=== PATIENT | female | born 1960 | race African-American/Black ===

== ENCOUNTER 2019-10-20 08:47 | Emergency (ER) | payer MEDICAID ==
[~2019-10-20] VITALS: Ht 167.6 cm; Wt 72.6 kg
[~2019-10-20 08:47] MED LIST: ASPIRIN81 MG ORAL; ATORVASTATIN CA20 MG ORAL; BENAZEPRIL HCL20 MG ORAL; FUROSEMIDE20 M1 ORAL; LISINOPRIL20 MG ORAL; LOSARTAN POTASS25 MG ORAL; LOVASTATIN40 MG ORAL; METHOCARBAMOL500 MG ORAL; NORCO 5-325 TA1 EAC1 ORAL; OYSTER SHELL 51 EAC1 PO; TESSALON PERLE100 MG ORAL
[2019-10-20] MEDS ORDERED: ATORVASTATIN CA40 MG ORAL (09:07)
[2019-10-20] MEDS ORDERED: LOSARTAN POTASS25 MG ORAL (09:07)
[2019-10-20] MEDS ORDERED: GLIPIZIDE5 MG ORAL (09:07)
[2019-10-20] MEDS ORDERED: HYDROCHLOROTH12.5 MG ORAL (09:07)
[2019-10-20] MEDS ORDERED: OYSCO-500500 M1 PO (09:07)
[2019-10-20 09:08] VITALS: BP 155/58
[2019-10-20] MEDS ORDERED: Ketorolac 30mg Inj IV ONE (09:15)
[2019-10-20] MEDS ORDERED: Morphine Sulfate 4mg/ml Inj (IV USE ONLY) IVP ONE (09:15)
[2019-10-20 09:26] LABS: BASOPHILS % (AUTO) 0.6 % (0.0-2.0); EOSINOPHILS % (AUTO) 0.1 % (0.0-3.0); HEMOGLOBIN 13.3 G/DL (12.0-16.0); MEAN CORPUSCULAR VOLUME 87 FL (80-99); MONOCYTES % (AUTO) 3.7 % (1.0-10.0); NEUTROPHILS % (AUTO) 84.7 % (45.0-75.0); PLATELET COUNT 240 K/UL (150-450); RED BLOOD COUNT 4.38 M/UL (4.20-5.40); RED CELL DISTRIBUTION WIDTH 10.7 % (11.6-14.8); WHITE BLOOD COUNT 12.6 K/UL (4.8-10.8)
[2019-10-20 10:01] LABS: ANION GAP 11 mmol/L (5-15); BLOOD UREA NITROGEN 21 mg/dL (7-18); CALCIUM 9.2 MG/DL (8.5-10.1); CARBON DIOXIDE 27 MMOL/L (21-32); CHLORIDE 102 MMOL/L (98-107); POTASSIUM 3.8 MMOL/L (3.5-5.1); SODIUM 140 MMOL/L (136-145)
[2019-10-20 10:06] LABS: ALANINE AMINOTRANSFERASE 35 U/L (12-78); ALBUMIN 4.2 G/DL (3.4-5.0); ALBUMIN/GLOBULIN RATIO 1.4 (1.0-2.7); ALKALINE PHOSPHATASE 86 U/L (46-116); ASPARTATE AMINO TRANSFERASE 20 U/L (15-37); BILIRUBIN,TOTAL 0.6 MG/DL (0.2-1.0)
--- NOTE | 2019-10-20 10:11 | Emergency Room Report ---
History of Present Illness General Chief Complaint: Abdominal Pain Source: Patient Present Illness HPI 59-year-old female presents with abdominal pain. Started around 3 AM today and woke her up. Pain is right-sided, sharp, 8 out of 10, nonradiating. Notes nausea, denies vomiting. Denies fevers or chills. Denies chest pain or shortness of breath. Denies any diarrhea. Denies sick contacts or recent travel. No other aggravating relieving factors. Denies any other associated symptoms Allergies: Coded Allergies: No Known Allergies (Unverified , 12/25/15) COVID-19 Screening Contact w/high risk pt: No Recent Travel to affected area: No Experienced COVID-19 symptoms?: No COVID-19 Testing performed STOCK PREPARATION OPERATOR: No Patient History Past Medical History: HTN Past Surgical History: none Pertinent Family History: none Social History: Denies: smoking, alcohol use, drug use Now: No Immunizations: UTD Reviewed Nursing Documentation: PMH: Agreed; PSxH: Agreed Nursing Documentation-PMH Hx Hypertension: Yes Hx Diabetes: Yes Review of Systems All Other Systems: negative except mentioned in HPI Physical Exam Vital Signs Date Time Temp Pulse Resp B/P (MAP) Pulse Ox O2 Delivery O2 Flow Rate FiO2 10/20/19 09:01 97.2 68 14 155/58 (90) 100 Room Air Sp02 EP Interpretation: reviewed, normal General Appearance: no apparent distress, alert, GCS 15, non-toxic Head: normocephalic, atraumatic Eyes: bilateral eye normal inspection, bilateral eye PERRL ENT: hearing grossly normal, normal pharynx, no angioedema, normal voice Neck: full range of motion, supple/symm/no masses Respiratory: chest non-tender, lungs clear, normal breath sounds, speaking full sentences Cardiovascular #1: regular rate, rhythm, no edema Cardiovascular #2: 2+ carotid (R), 2+ carotid (L), 2+ radial (R), 2+ radial (L) , 2+ dorsalis pedis (R), 2+ dorsalis pedis (L) Gastrointestinal: normal bowel sounds, soft, non-distended, no guarding, no rebound, tenderness - RUQ Rectal: deferred Genitourinary: normal inspection, no CVA tenderness Musculoskeletal: back normal, normal range of motion, gait/station normal, non- tender Neurologic: alert, motor strength/tone normal, oriented x3, sensory intact, responsive, speech normal Psychiatric: judgement/insight normal, memory normal, mood/affect normal, no suicidal/homicidal ideation Reflexes: 3+ bicep (R), 3+ bicep (L), 3+ tricep (R), 3+ tricep (L), 3+ knee (R) , 3+ knee (L) Skin: no rash Lymphatic: no adenopathy Medical Decision Making Diagnostic Impression: Primary Impression: Cholelithiasis Qualified Codes: K80.20 - Calculus of gallbladder without cholecystitis without obstruction ER Course Hospital Course 59-year-old F presents to ED with RUQ abdominal pain Differential diagnosis includes - pyelonephritis, kidney stone, gastritis, cholecystitis Clinical course Patient placed on stretcher. After initial history and physical I ordered labs , IV fluids, pain medications and US Labs - minimal leukocytosis, electrolytes ok, LFTs normal, US shows gallstones, no GB thickening, negative murphys sign, CBD normal Upon reassessment, patient states pain has improved. Discussed findings with patient. Vitals stable. LFTs normal. No signs of biliary obstruction. Safe for discharge for close outpatient follow-up. I will provide surgery referral. I feel this is a highly complex case requiring extensive working including EKG/ Rhythm strip, Xray/CT/US, Blood/urine lab work, repeat exams while in ED, and administration of strong opiates/narcotics for pain control, admission to hospital or close patient follow up. Diagnosis - cholelithiasis Stable and discharged to home with prescription for Motrin, T#3, zofran, pepcid. Followup with PMD. Return to ED if symptoms recur or worsen Labs Test 10/20/19 09:10 10/20/19 10:20 White Blood Count 12.6 K/UL (4.8-10.8) Red Blood Count 4.38 M/UL (4.20-5.40) Hemoglobin 13.3 G/DL (12.0-16.0) Hematocrit 38.0 % (37.0-47.0) Mean Corpuscular Volume 87 FL (80-99) Mean Corpuscular Hemoglobin 30.3 PG (27.0-31.0) Mean Corpuscular Hemoglobin Concent 35.0 G/DL (32.0-36.0) Red Cell Distribution Width 10.7 % (11.6-14.8) Platelet Count 240 K/UL (150-450) Mean Platelet Volume 6.7 FL (6.5-10.1) Neutrophils (%) (Auto) 84.7 % (45.0-75.0) Lymphocytes (%) (Auto) 11.0 % (20.0-45.0) Monocytes (%) (Auto) 3.7 % (1.0-10.0) Eosinophils (%) (Auto) 0.1 % (0.0-3.0) Basophils (%) (Auto) 0.6 % (0.0-2.0) Sodium Level 140 MMOL/L (136-145) Potassium Level 3.8 MMOL/L (3.5-5.1) Chloride Level 102 MMOL/L (98-107) Carbon Dioxide Level 27 MMOL/L (21-32) Anion Gap 11 mmol/L (5-15) Blood Urea Nitrogen 21 mg/dL (7-18) Creatinine 1.0 MG/DL (0.55-1.30) Estimat Glomerular Filtration Rate > 60 mL/min (>60) Glucose Level 240 MG/DL (74-106) Calcium Level 9.2 MG/DL (8.5-10.1) Total Bilirubin 0.6 MG/DL (0.2-1.0) Aspartate Amino Transf (AST/SGOT) 20 U/L (15-37) Alanine Aminotransferase (ALT/SGPT) 35 U/L (12-78) Alkaline Phosphatase 86 U/L (46-116) Total Protein 7.3 G/DL (6.4-8.2) Albumin 4.2 G/DL (3.4-5.0) Globulin 3.1 g/dL Albumin/Globulin Ratio 1.4 (1.0-2.7) Lipase 98 U/L (73-393) Urine Color Pale yellow Urine Appearance Clear Urine pH 5 (4.5-8.0) Urine Specific [place] 1.020 (1.005-1.035) Urine Protein 1+ (NEGATIVE) Urine Glucose (UA) 3+ (NEGATIVE) Urine Ketones 3+ (NEGATIVE) Urine Blood 2+ (NEGATIVE) Urine Nitrite Negative (NEGATIVE) Urine Bilirubin Negative (NEGATIVE) Urine Urobilinogen Normal MG/DL (0.0-1.0) Urine Leukocyte Esterase Negative (NEGATIVE) Urine RBC 2-4 /HPF (0 - 2) Urine WBC 0-2 /HPF (0 - 2) Urine Squamous Epithelial Cells Few /LPF (NONE/OCC) Urine Bacteria Occasional /HPF (NONE) CT/MRI/US Diagnostic Results CT/MRI/US Diagnostic Results : Imaging Test Ordered: ABD US Impression gallstones noted. no GB wall thickening. no sludge Last Vital Signs Date Time Temp Pulse Resp B/P (MAP) Pulse Ox O2 Delivery O2 Flow Rate FiO2 10/20/19 09:08 97.2 14 155/58 100 Room Air 10/20/19 09:08 68 Status: improved Disposition: HOME, SELF-CARE Condition: Stable Scripts Famotidine* (Pepcid 20mg tablet*) 20 Mg Tablet 20 MG ORAL DAILY, #30 TAB 0 Refills Prov: Diaz Hein MD 10/20/19 Ondansetron Odt* (ZOFRAN ODT*) 4 Mg Tab.rapdis 4 MG BC EVERY 6 HOURS PRN for Nausea & Vomiting, #20 TAB 0 Refills Prov: Diaz Hein MD 10/20/19 Acetaminophen With Codeine (T#3) (TYLENOL #3 TAB*) Y Tab 1 TAB ORAL Q8H PRN for For Pain, #12 TAB Prov: Diaz Hein MD 10/20/19 Ibuprofen* (MOTRIN*) 600 Mg Tablet 600 MG ORAL Q8H PRN for FOR PAIN, #30 TAB 0 Refills Prov: Diaz Hein MD 10/20/19 Referrals: [facility],REFERRING (PCP) Diaz Hein MD October 20, 2019 10:11
[2019-10-20] MEDS ORDERED: ONDANSETRON ODT4 MG BC (10:42)
[2019-10-20] MEDS ORDERED: IBUPROFEN600 M1 ORAL (10:42)
[2019-10-20] MEDS ORDERED: ACETAMINOPHEN-1 EAC1 ORAL (10:42)
[2019-10-20] MEDS ORDERED: FAMOTIDINE20 MG ORAL (10:42)
[2019-10-20 10:43] LABS: APPEARANCE,URINE CLEAR; BILIRUBIN, URINE NEGATIVE (NEGATIVE); COLOR,URINE PALE YELLOW; GLUCOSE, URINE (UA) 3+ (NEGATIVE); KETONES,URINE 3+ (NEGATIVE); LEUKOCYTE ESTERASE ,URINE NEGATIVE (NEGATIVE); NITRITE,URINE NEGATIVE (NEGATIVE); PH,URINE 5 (4.5-8.0); PROTEIN,URINE 1+ (NEGATIVE); UROBILINOGEN,URINE NORMAL MG/DL (0.0-1.0)
[2019-10-20 10:51] VITALS: BP 103/64
--- NOTE | 2019-10-20 11:41 | Diagnostic Imaging Report ---
Indication: Abdominal pain, right upper quadrant pain, nausea, vomiting Technique: Heller-scale and duplex images of the upper abdomen were obtained Comparison: none Findings: Gallbladder demonstrates multiple large gallstones. No gallbladder wall thickening or pericholecystic fluid. Sonographic Howard's sign is negative. Common bile duct measures 4 mm in diameter. No intrahepatic biliary ductal dilatation. Liver demonstrates normal echogenicity, no focal abnormality. Portal vein and hepatic veins are patent. Pancreas is unremarkable. Spleen is unremarkable. Left kidney measures 10 cm in length. Right kidney measures 10.4 cm length. Both kidneys demonstrate normal echogenicity. There is no hydronephrosis. No focal abnormality . Non-aneurysmal abdominal aorta . Impression: Cholelithiasis. Negative for dilated bile ducts No other acute or significant findings
== END 2019-10-20 10:51 | disposition home or self-care (01) ==
LOC: EMR 09:09
DX: K80.20 Calculus of gallbladder without cholecystitis without obstruction (principal); I10 Essential (primary) hypertension; E11.9 Type 2 diabetes mellitus without complications; D72.829 Elevated white blood cell count, unspecified
CPT/HCPCS: 36415; 76700; 80053; 81003; 83690; 85025; 96361; 96374; 96375; J1885; J2270; J2405; J7030; S0028; Z7502; 99284

== ENCOUNTER 2020-08-07 11:10 | Emergency (ER) | payer MEDICAID ==
[~2020-08-07] VITALS: Ht 162.6 cm; Wt 72.6 kg
[~2020-08-07 11:10] MED LIST changes: +ACETAMINOPHEN-1 EAC1 ORAL; +ATORVASTATIN CA40 MG ORAL; +FAMOTIDINE20 MG ORAL; +GLIPIZIDE5 MG ORAL; +HYDROCHLOROTH12.5 MG ORAL; +IBUPROFEN600 M1 ORAL; +ONDANSETRON ODT4 MG BC; +OYSCO-500500 M1 PO
[2020-08-07 11:29] VITALS: BP 135/64
--- NOTE | 2020-08-07 11:37 | Emergency Room Report ---
History of Present Illness General Chief Complaint: Lower Back Pain or Injury Source: Patient Present Illness HPI Several days ago the patient was on a counter moving lights. She drank down and experienced pain in her lower back immediately. Since that time she has had pain in her lower back mainly on the right-hand side that radiates down into her buttock area but not down her leg. She has been taking ibuprofen and says this has not helped. She has to lay on her left side overall she has pain on the right. She saw a chiropractor once. He said he felt that she might have a spinal fracture and recommended coming to the emergency department for x-rays studies. Patient is not on a blood thinner denies oncologic problems, denies dysuria, denies saddle numbness or incontinence, denies numbness or weakness on the right-hand side. She is never had back problems in the past. She denies fevers or chills. She rates the pain 10/10 at this time aching and radiating into her buttock area. She also states that there are times when she feels muscle spasms that make the pain worse. The patient denies exposure to Covid positive contacts. Patient denies osteoporosis. The patient has a history of diabetes that she says is "prediabetes". She takes oral medications for this. She did not tolerate Metformin. He denies polyuria and polydipsia. She has gained some weight and says her diet is not good at this time. Patient also has a history of hypertension and hypercholesterolemia. No sore throat, chest pain, palpitations, nausea, vomiting, diarrhea, abdominal pain, shortness of breath, dizziness, headache. Allergies: Coded Allergies: No Known Allergies (Unverified , 12/25/15) COVID-19 Screening Contact w/high risk pt: No Recent Travel to affected area: No Experienced COVID-19 symptoms?: No COVID-19 Testing performed PLUMBER GASFITTER: No Patient History Past Medical History: see triage record Social History: Denies: smoking Social History Narrative Caring for her 3-year-old granddaughter Now: No Reviewed Nursing Documentation: PMH: Agreed; PSxH: Agreed Nursing Documentation-PMH Past Medical History: No History, Except For Hx Cardiac Problems: No Hx Hypertension: Yes Hx Pacemaker: No Hx Asthma: No Hx COPD: No Hx Diabetes: Yes Hx Cancer: No Hx Gastrointestinal Problems: No Hx Dialysis: No History Of Psychiatric Problem: No Hx Neurological Problems: No Hx Cerebrovascular Accident: No Hx Seizures: No Review of Systems All Other Systems: negative except mentioned in HPI Physical Exam Vital Signs Date Time Temp Pulse Resp B/P (MAP) Pulse Ox O2 Delivery O2 Flow Rate FiO2 08/07/20 11:25 99.0 79 18 135/64 (87) 99 Room Air Sp02 EP Interpretation: reviewed, normal General Appearance: well appearing, no apparent distress, GCS 15 Head: normocephalic Eyes: bilateral eye normal inspection, bilateral eye PERRL ENT: other - Wearing a mask Neck: full range of motion, supple Respiratory: lungs clear, normal breath sounds Cardiovascular #1: regular rate, rhythm Cardiovascular #2: 2+ radial (R), 2+ dorsalis pedis (R) Gastrointestinal: normal inspection, non tender Musculoskeletal: gait/station normal, no calf tenderness, tenderness - Right paraspinous muscles, other - No point tenderness of the spine. Straight leg raise is negative for sciatic pain or increased pain in the lower back. She is able to sit and stand without difficulty but sometimes gets caught with pain which she says is like a muscle spasm. Neurologic: alert, motor strength/tone normal, DTRs symmetric, oriented x3, sensory intact, cerebellar normal, speech normal Psychiatric: mood/affect normal - Concerned Reflexes: 2+ knee (R), 2+ knee (L); 1+ ankle (R), 1+ ankle (L) Skin: normal color, no rash Medical Decision Making Diagnostic Impression: Primary Impression: Lumbar spine strain Qualified Codes: S39.012A - Strain of muscle, fascia and tendon of lower back, initial encounter Additional Impressions: Muscle spasm Hyperglycemia ER Course Patient presents with lumbar pain mainly on the right-hand side with muscle spasms and pain radiating down to the gluteal area. She was advised to get x- rays performed however based on her exam there is no evidence of a spinal fr acture at this time. Differential includes back strain, herniated disc, upper or sciatica amongst others. Patient will be administered Soma and Percocet. Repeat exam is indicated. There are no red flag symptoms at this time. An Accu-Chek will be obtained. Accu-Chek is 183. Patient improved with treatment. Decreased episodes of muscle spasms. She still does have pain. Discussed findings and treatment plan with patient. Discussed the need for outpatient reevaluation and physical therapy. Also discussed elevated blood sugar. She states she knows how to perform lifestyle changes in order to bring this down. No medical emergency at this time. Patient stable for outpatient observation and treatment. Last Vital Signs Date Time Temp Pulse Resp B/P (MAP) Pulse Ox O2 Delivery O2 Flow Rate FiO2 08/07/20 12:19 98.9 08/07/20 12:17 64 18 107/73 99 Room Air Status: improved Disposition: HOME, SELF-CARE Condition: Improved Scripts Hydrocodone/Acetaminophen 5-325* (HYDROCODONE/ACETAMINOPHEN 5-325*) 1 Each Table t 1 TAB ORAL Q6H PRN for For Pain, #10 TAB 0 Refills Prov: Saul Nugent MD 08/07/20 Methocarbamol* (ROBAXIN-500*) 500 Mg Tablet 500 MG ORAL TID PRN for muscle spasms, #10 TAB 0 Refills Prov: Saul Nugent MD 08/07/20 Ibuprofen* (MOTRIN*) 600 Mg Tablet 600 MG ORAL Q6H PRN for FOR PAIN, #20 TAB 0 Refills Prov: Saul Nugent MD 08/07/20 Saul Nugent MD Aug 07, 2020 11:37
[2020-08-07] MEDS ORDERED: ROBAXIN-500MG ORAL (11:40)
[2020-08-07] MEDS ORDERED: HYDROCODON-ACE1 EA15 ORAL (11:40)
[2020-08-07] MEDS ORDERED: IBUPROFEN600 M1 ORAL (11:40)
[2020-08-07] MEDS ORDERED: oxyCODONE HCL/Acetaminophen 5/325mg ORAL ONE (11:45)
--- NOTE | 2020-08-07 11:56 | NUR ---
pt standing on counter, jumped off, felt pain shoot up R upper leg. pt states over the past two days she has been attempting to walk but with pain in R buttock area, low back area. pt went to chiropractor, sent to ER for eval. pt states constant pulsing pain, taking IBU without relief. pt states full sensation in RLE, full movement. pt states pmh: HTN, DM, high cholesterol. pt denies cough/fever/sob. pt medicated per eMAR.
[2020-08-07 12:17] VITALS: BP 107/73
--- NOTE | 2020-08-07 12:17 | NUR ---
ED Nurse Note: Pt cleared by health care Provider for discharge. DC instructions/prescription was given and explained to pt and verbalized understanding of teachings. All medical deviecs such as ID band removed. Pt is AAO x4, ambulatory and left with all personal belongings.
== END 2020-08-07 12:34 | disposition home or self-care (01) ==
LOC: EMR 11:49
DX: S39.012A Strain of muscle, fascia and tendon of lower back, initial encounter (principal); M62.838 Other muscle spasm; E11.65 Type 2 diabetes mellitus with hyperglycemia; W19.XXXA Unspecified fall, initial encounter; Y92.9 Unspecified place or not applicable; I10 Essential (primary) hypertension; E78.00 Pure hypercholesterolemia, unspecified
CPT/HCPCS: 82962; Z7502; 99283